=== PATIENT | female | born 1930 | race Caucasian/White ===

== ENCOUNTER 2018-04-21 19:38 | Inpatient (IN) ==
[2018-04-21] MEDS ORDERED: DILAUDID IV ONE ×2 (19:41→20:29)
[2018-04-21 20:26] LABS: BASO# 0.05 X1000 (0.0-0.2); BASO% 0.5 % (0.0-0.8); EOS# 0.21 X1000 (0.0-0.7); EOS% 2.3 % (0.0-10.0); HEMATOCRIT 29.7 % (37.0-47.0); HEMOGLOBIN 9.5 g/dL (12.0-16.0); IMM GRAN# 0.02 X1000 (0.0-0.04); IMM GRAN% 0.2 % (0.0-0.5); LYMPH# 2.37 X1000 (1.2-3.4); LYMPH% 25.8 % (20.5-51.1); MCH 30.9 PG (27-31); MCV 96.7 FL (81-99); MONO# 0.51 X1000 (0.11-0.59); MONO% 5.6 % (1.7-9.3); MPV 9.4 FL (7.4-10.4); NEUT# 6.01 X1000 (1.4-6.5); NEUT% 65.6 % (42.2-75.2); PLT 331 X1000 (130-400); RBC 3.07 XMIL (4.2-5.4); RDW 12.9 % (11.5-14.5); WBC 9.17 X1000 (4.8-10.8)
[2018-04-21 20:36] LABS: INR 0.88; PROTIME 12.7 Seconds (11.0-16.0); PTT 25.1 Seconds (22.3-41.8)
[2018-04-21 20:53] LABS: CALCIUM 9.2 mg/dL (8.8-10.2); CREATININE 1.5 mg/dL (0.5-0.9); POTASSIUM 5.1 mmol/L (3.5-5.1)
--- NOTE | 2018-04-21 21:06 | Diag Imaging Result Doc PS360 ---
KNEE 1-2 VIEWS-RIGHT - 04/21/2018 INDICATION: knee pain TECHNIQUE: Two views COMPARISON: 06/24/2017 FINDINGS: There is a complete dislocation of the prosthetic knee. The lower leg appears to be posteriorly dislocated. No obvious fractures. IMPRESSION: Prosthetic knee dislocation. Electronically signed by Leander Mcclure 04/21/2018 9:04 PM
[2018-04-21] MEDS ORDERED: KETAMINE IV ONE (21:34)
[2018-04-21] MEDS: DIPRIVAN 1% IV ONE (21:53)
[2018-04-21] MEDS ORDERED: NS 1,000 ML ONE (22:01)
[2018-04-21] MEDS ORDERED: NS 1,000 ML IV ONE (22:04)
--- NOTE | 2018-04-21 22:11 | PROVIDER DOCUMENTATION ---
This chart was entered by Sofia Joseph Scribe, acting as scribe for John Andino MD. HPI-Musculoskeletal Pain/Inj - GENERAL Stated Complaint: knee pain Time Seen by Provider: 04/21/18 19:40 Source: patient, EMS - HX OF PRESENT ILLNESS-MUSKULOSKELTAL Nature of Presenting Problem: 87 yof presents to ED by EMS c/o complete opening of right knee after falling on a hardwood floor. Pt had total right knee replacement 2 wks ago. Review of Systems - Adult - REVIEW OF SYSTEMS - ADULT Constitutional: denies: chills, fever Eyes: reports: no symptoms reported Ears, Nose, Mouth & Throat: reports: no symptoms reported Cardiovascular: reports: no symptoms reported Respiratory: reports: no symptoms reported Gastrointestinal: reports: no symptoms reported Genitourinary: reports: no symptoms reported Musculoskeletal: reports: see HPI, other (right knee) Integumentary: reports: no symptoms reported Neurological: reports: no symptoms reported Psychiatric: reports: no symptoms reported Endocrine: reports: no symptoms reported Hematologic/Lymphatic: reports: no symptoms reported Allergic/Immunologic: reports: no symptoms reported All Other Systems: Reviewed and Negative Past History - Adult - PAST MEDICAL HISTORY-ADULT Review of Records: reports: Old Records Reviewed, Nursing Assessment Review, Medications Reviewed Major Childhood Illnesses: reports: denies history Cardiovascular: reports: denies history Respiratory: reports: denies history Gastrointestinal: reports: denies history Obstetrical/Gynecological: reports: denies history Genitourinary: reports: denies history Musculoskeletal: reports: denies history Neurological: reports: denies history Endocrine/Immune: reports: denies history Other Conditions: reports: denies history - IMMUNIZATION STATUS Childhood Immunizations: See Nurse Assessment Flu Vaccine: See Nurse Assessment - FAMILY HISTORY Family History: reviewed, not pertinent Physical Exam-Injury Related - Physical Exam-Injury Related Initial Vital Signs Reviewed: Yes General Appearance: alert, no apparent distress Eyes: PERRL/EOMI Head, Ears, Nose, Mouth & Throat: normocephalic/atraumatic Neck: non-tender Respiratory: chest non-tender Cardiovascular: normal peripheral pulses Abdominal Exam: normal bowel sounds Lymphatic: no adenopathy Back Exam: normal inspection Extremity: deformity, tenderness, other (complete opening of knee replacement,6- 7 inch long, 8-10 inch medial, good pulse, moving toes, neurovascularly intact) Integumentary: tenderness, other (complete opening of knee replacement, 6-7 inch long, 8-10 inch medial) Neurologic: preparer making department II-XII nml as tested Psych/Mental Status: normal mood/affect Progress - PLAN OF CARE/RESULTS Progress/Plan/Lab Results: Vital Signs - 8 hr 04/21/18 19:38 Temperature 99.0 F Pulse Rate 93 H Respiratory Rate 22 Blood Pressure 151/96 O2 Sat by Pulse Oximetry 100 Laboratory Results - last 24 hr 04/21/18 04/21/18 04/21/18 20:08 20:08 20:08 WBC 9.17 RBC 3.07 L Hgb 9.5 L Hct 29.7 L MCV 96.7 MCH 30.9 MCHC 32.0 L RDW Std Deviation 12.9 Plt Count 331 MPV 9.4 Immature Gran % (Auto) 0.2 Neut % (Auto) 65.6 Lymph % (Auto) 25.8 [place] % (Auto) 5.6 Eos % (Auto) 2.3 Baso % (Auto) 0.5 Immature Gran # (Auto) 0.02 Neut # (Auto) 6.01 Lymph # (Auto) 2.37 [place] # (Auto) 0.51 Eos # (Auto) 0.21 Baso # (Auto) 0.05 PT 12.7 INR 0.88 PTT (Actin FS) 25.1 Sodium 143 Potassium 5.1 Chloride 109 H Carbon Dioxide 20 L Anion Gap 14 BUN 48 H Creatinine 1.5 H Estimated GFR/1.73 m2 33 BUN/Creatinine Ratio 32 Glucose 137 H Calculated Osmolality 300 Calcium 9.2 Blood Type Antibody Screen 04/21/18 20:08 WBC RBC Hgb Hct MCV MCH MCHC RDW Std Deviation Plt Count MPV Immature Gran % (Auto) Neut % (Auto) Lymph % (Auto) [place] % (Auto) Eos % (Auto) Baso % (Auto) Immature Gran # (Auto) Neut # (Auto) Lymph # (Auto) [place] # (Auto) Eos # (Auto) Baso # (Auto) PT INR PTT (Actin FS) Sodium Potassium Chloride Carbon Dioxide Anion Gap BUN Creatinine Estimated GFR/1.73 m2 BUN/Creatinine Ratio Glucose Calculated Osmolality Calcium Blood Type A POSITIVE Antibody Screen NEGATIVE Orders Category Date Time Status NPO Diet 04/21/18 19:42 Active KNEE 1-2 VIEWS-RIGHT [RAD] Stat Exams 04/21/18 19:40 Completed BMP [BASIC METABOLIC PANEL] [CHEM] Stat Lab 04/21/18 20:08 Completed CBC WITH ELECTRONIC DIFF [HEME] Stat Lab 04/21/18 20:08 Completed PROTIME WITH INR [COAG] Stat Lab 04/21/18 20:08 Completed PTT [COAG] Stat Lab 04/21/18 20:08 Completed TYPE & SCREEN [BBK] Stat Lab 04/21/18 20:08 Completed 0.9% Sodium Chloride Inj [Ns] 1,000 ml Med 04/21/18 22:01 Discontinued .ROUTE As Directed 0.9% Sodium Chloride Inj [Ns] 1,000 ml Med 04/21/18 22:04 Ordered IV 150 mls/hr Hydromorphone [Dilaudid] Med 04/21/18 19:41 Discontinued 1 mg IV NOW ONE Hydromorphone [Dilaudid] Med 04/21/18 20:29 Discontinued 1 mg IV NOW ONE Ketamine Med 04/21/18 21:34 Discontinued 100 mg IV NOW ONE Propofol [Diprivan 1%] Med 04/21/18 21:34 Discontinued 200 mg IV STAT ONE Transfer/Admit Order [TRANSFER] Routine Transfer 04/21/18 21:49 Ordered 21:50 150/92 b/p, 92% sats, 100 hr 21:51 100mg ketamine 21:53 50mg propofol 21:54 Dr. Durbin put knee in place Result Diagrams: 04/21/18 20:08 04/21/18 20:08 - EKG 2 Time of EKG reading by physician:: 19:57 EKG Read and Signed by:: John Andino EKG Interpretation (*Must complete 3 of following elements*): Abnormal Rate: 92 Rhythm: accelerated junctional [place]: left ST Wave: non-specific ST changes - XRAY 1 XRAY: Right XRAY Study: Knee Impression: Abnormal (MPRESSION: Prosthetic knee dislocation. Electronically signed by Leander Mcclure 04/21/2018 9:04 PM) Departure - Departure Date of Disposition Decision: 04/21/18 Time of Disposition Decision: 22:09 DIAGNOSIS: Wound dehiscence, surgical Knee dislocation Qualifiers: Encounter type: initial encounter Laterality: right Qualified Code(s): S83.104A - Unspecified dislocation of right knee, initial encounter Disposition: ADMITTED INPATIENT 09 Certified Medical Emergency: Emergent Condition: Stable Referrals and Follow-Ups: Jazzy Loera MD [Primary Care Provider] - - Critical Care Note This patient required my direct & personal management of CC.: Yes Attestation - Physician/ JAYLEN Attestation Patient care was provided by Advanced Practice Provider:: No The physician spent face to face time with patient:: Yes Advanced Practice Provider documentation review:: Supervising physician onsite and consulted in the evaluation and care of this patient. The physician did have a face to face encounter with the patient. This chart was documented by the indicated scribe, (Sofia Joseph Scribe) and accurately reflects the services I performed and decisions made by me, John Andino MD, as attested by the provider's signature.
[2018-04-21] MEDS ORDERED: XYLOCAINE-MPF 2% ONE (22:29)
[2018-04-21] MEDS ORDERED: ROBINUL ONE (22:29)
[2018-04-21] MEDS ORDERED: FENTANYL ONE (22:35)
[2018-04-21] MEDS ORDERED: DIPRIVAN 1% ONE (22:35)
[2018-04-21] MEDS ORDERED: KEFZOL 2 GM/D5W 2 GM/50 ML IVPB ONE (22:48)
[2018-04-21] MEDS ORDERED: KEFZOL 1 GM/D5W 2 GM/100 ML IVPB ONE (23:02)
[2018-04-21] MEDS ORDERED: QUELICIN (DOSE) ONE (23:24)
[2018-04-21] MEDS ORDERED: NEO-SYNEPHRINE ONE (23:24)
[2018-04-21] MEDS ORDERED: SODIUM CHLORIDE 0.9% 10 ML ONE (23:24)
[2018-04-21] MEDS ORDERED: ZEMURON ONE (23:24)
[2018-04-21] MEDS ORDERED: ZOFRAN ONE (23:50)
--- NOTE | 2018-04-22 00:19 | HISTORY AND PHYSICAL ---
Patient of Dr. Loera. REASON FOR ADMISSION: Right knee injury following a fall today. HISTORY OF PRESENT ILLNESS: Ms. Kayy Clinton is an 87-year-old lady with past medical history of type 2 diabetes mellitus, hypertension, and hyperlipidemia. She was just recently, about 2 weeks ago, discharged following an elective total knee replacement. She had been doing well at home with physical therapy when today she missed her footing and fell. When she fell, she was in excruciating pain emanating from the same knee where she had surgery. There was a lot of bleeding per the patient but she stated that she did not lose consciousness. She did not have any antecedent chest pain or cardiorespiratory symptoms. The patient is a resident at [facility] and the staff there were able to call EMS when she alerted them for assistance. Other than the pain emanating from her right knee, she has no other acute complaints referable to the GI, , cardiorespiratory and neurological systems. REVIEW OF SYSTEMS: A 12-system review was done. Positive findings as per HPI. ALLERGIES: None. HOME MEDICATIONS: Are yet to be reconciled. PAST SURGICAL HISTORY: She has had a cholecystectomy, right hip nailing, right total knee replacement, another prior knee surgery in the past. SOCIAL HISTORY: She lives at [facility]. She does not smoke, drink or use drugs. FAMILY HISTORY: No overt history of heart disease, diabetes in first-degree relatives. LABORATORY DATA: White count 9000, hemoglobin 9, hematocrit 29, platelets 331, normal differential. BUN 48, creatinine 1.5. The BUN level is up from 26. Glucose 137. PT and PTT are normal. Knee x-ray done in the ER shows prosthetic knee dislocation in the posterior direction. PHYSICAL EXAMINATION: GENERAL: A morbidly obese, elderly, woman who is in mild distress with pain. She is alert and oriented x 3 with normal mood and affect. VITAL SIGNS: Blood pressure 151/96, heart rate 92, respirations 22, temperature 99 degrees, oxygen saturation 100% on room air. HEENT: Head is normocephalic, atraumatic. Eyes: PERRLA. Extraocular movements intact. She is anicteric and not pale. ENT exam is grossly normal. No central cyanosis. NECK: Short and thick. No JVD, carotid bruits, or thyromegaly. CHEST: Clear when auscultated. Good air entry in both lung tavarez. CARDIOVASCULAR: First and second heart sounds heard. No gallops, murmurs or rubs. Rhythm is regular. ABDOMEN: Protuberant and soft with no focal areas of tenderness. No masses or organomegaly. Bowel sounds are hyperactive. RECTAL: Exam is deferred at this time. EXTREMITIES: No edema, clubbing or peripheral cyanosis. Pulses distally have good volume surprisingly. NEUROLOGIC: The patient is able to wiggle toes on affected right lower extremity. Otherwise she has good strength in the rest of her extremities. SKIN: Exam notable for a deep laceration extending from the mid anterior thigh all the way to the distal aspect of the right knee anteriorly. Then she has a medial laceration extending from the tip of the aforementioned laceration all the way to the mid calf area posteriorly of her right knee. There is a dressing overlying the knee and it is soaked with blood. This laceration is all the way down beyond the deep fascia showing all the muscles in the anterior compartment of her knee. MUSCULOSKELETAL: Exam is grossly normal other than the aforementioned findings above. ASSESSMENT: 1. Wound dehiscence of right knee following trauma from fall. 2. Hypertension. 3. Type 2 diabetes mellitus. 4. Hyperlipidemia. 5. Mild to moderate azotemia. PLAN: Dr. Durbin who is continuity manager for Orthopedics, came by to see the patient and decided he needs to take the patient to the OR tonight. The patient will be hydrated preoperatively. Medication reconciliation sheet is yet to be evaluated. The patient will be treated symptomatically for pain and nausea. We strongly recommend very conservative control of patient's blood pressure in light of her fluid shift from blood loss, i.e., do not give blood pressure medications if systolic blood pressure is less than 140. Sliding-scale insulin will also be instituted while patient is here to control perioperative blood sugars. cc: MD Jazzy Gray MD
[2018-04-22] MEDS ORDERED: NEO-SYNEPHRINE ONE (00:22)
[2018-04-22] MEDS ORDERED: ZOFRAN IV PRN ×2 (01:36→02:21)
[2018-04-22] MEDS: DILAUDID ONE ×3 (01:43→02:35)
[2018-04-22] MEDS ORDERED: NS 1,000 ML ONE (02:05)
[2018-04-22] MEDS ORDERED: TYLENOL PO PRN (02:21)
[2018-04-22 02:38] LABS: HEMATOCRIT 25.1 % (37.0-47.0); HEMOGLOBIN 7.8 g/dL (12.0-16.0); MCH 30.8 PG (27-31); MCHC 31.1 g/dL (33-37); MCV 99.2 FL (81-99); MPV 8.8 FL (7.4-10.4); RBC 2.53 XMIL (4.2-5.4); RDW 13.1 % (11.5-14.5); WBC 13.03 X1000 (4.8-10.8)
[2018-04-22] MEDS: MORPHINE IV PRN ×3 (03:21→09:51)
[2018-04-22 03:41] LABS: URINE SOURCE CATH
[2018-04-22 03:43] LABS: BILIRUBIN URINE NEGATIVE (NEGATIVE); BLOOD URINE NEGATIVE (NEGATIVE); COLOR YELLOW; GLUCOSE URINE NEGATIVE (NEGATIVE); KETONE URINE TRACE mg/dL (NEGATIVE); LEUKOCYTES URINE TRACE (NEGATIVE); NITRITE URINE POSITIVE (NEGATIVE); PROTEIN URINE TRACE mg/dL (NEGATIVE); SP GRAVITY URINE 1.016; TURBIDITY URINE CLEAR (CLEAR); UR EPITHELIAL CELLS <10 /HPF (<10); URINE BACTERIA 4+ /HPF; URINE RBC <10 /HPF (<10); URINE WBC <10 /HPF (<10); UROBILINOGEN URINE NORMAL (NORMAL)
--- NOTE | 2018-04-22 05:18 | CONSULTATION ---
DATE OF CONSULTATION: 04/21/2018 CHIEF COMPLAINT: Fall with right knee pain. HISTORY OF PRESENT ILLNESS: Ms Clinton, an 87-year-old female, who presented to the emergency department after a fall. She fell and landed on her right knee. She had just had a total knee arthroplasty per my partner, Dr. Louis, back on 04/09/2018 and she busted open her incision. She came to the ER where they did x-rays which showed a posterior knee dislocation. I was consulted. Most of her pain is at the right knee. She denies pain anywhere else. PAST MEDICAL HISTORY: Diabetes, hypertension, obesity. PAST SURGICAL HISTORY: She has had several hip surgeries. She has had a right knee replacement as above, cholecystectomy, hysterectomy. SOCIAL HISTORY: She lives in assisted-living facility. She denies any tobacco or alcohol use. FAMILY HISTORY: Noncontributory. MEDICATIONS: Per the medical record. ALLERGIES: No known drug allergies. REVIEW OF SYSTEMS: Positive for right knee pain. All other systems are essentially negative. PHYSICAL EXAMINATION: General: She is an obese elderly female in no acute distress. Head and Neck: Normocephalic, atraumatic. Respirations: Nonlabored. Cardiovascular: Regular pulse . Abdomen: Nondistended. Extremities: Right lower extremity exam, looking at her knee she has an extremely large laceration. She dehisced her entire surgical incision and then she has a laceration that extends down the medial aspect of the knee toward the posterior aspect of the knee. She did have Dopplerable pulses before any reduction. RADIOGRAPHS: Two-view of the right knee show a posterior knee dislocation. It looks like the patella fractured as well. ASSESSMENT: Right knee periprosthetic dislocation. PLAN: I discussed with Ms. Clinton and her family about closed reduction. I went over with them the procedure, risks, benefits, potential complications. Risks include, but are not limited to, fracture, vascular issues, unable to get it reduced and sedation-related problems. After discussing these with the patient and the family, they expressed understanding and wished to proceed. We will perform a closed reduction in the ER and then go from there. cc: Gil Durbin MD
[2018-04-22] MEDS ORDERED: LOVENOX SUBQ SCH (06:00)
[2018-04-22 06:18] LABS: BASO# 0.04 X1000 (0.0-0.2); BASO% 0.3 % (0.0-0.8); EOS# 0.11 X1000 (0.0-0.7); EOS% 0.8 % (0.0-10.0); HEMATOCRIT 23.9 % (37.0-47.0); HEMOGLOBIN 7.5 g/dL (12.0-16.0); IMM GRAN# 0.04 X1000 (0.0-0.04); IMM GRAN% 0.3 % (0.0-0.5); LYMPH# 2.28 X1000 (1.2-3.4); LYMPH% 17.5 % (20.5-51.1); MCH 31.3 PG (27-31); MCHC 31.4 g/dL (33-37); MCV 99.6 FL (81-99); MONO# 0.91 X1000 (0.11-0.59); MPV 9.8 FL (7.4-10.4); NEUT# 9.65 X1000 (1.4-6.5); NEUT% 74.1 % (42.2-75.2); PLT 321 X1000 (130-400); RDW 13.2 % (11.5-14.5); WBC 13.03 X1000 (4.8-10.8)
[2018-04-22] MEDS: HUMALOG SUBQ SCH ×4 (06:20→20:48)
[2018-04-22] MEDS: KEFZOL 1 GM/D5W 1 GM/50 ML IVPB IV SCH ×3 (06:21→23:28)
[2018-04-22 07:01] LABS: CALCIUM 7.9 mg/dL (8.8-10.2); CREATININE 1.6 mg/dL (0.5-0.9); POTASSIUM 5.9 mmol/L (3.5-5.1)
--- NOTE | 2018-04-22 08:29 | OPERATIVE NOTE ---
PROCEDURE DATE: 04/21/2018 PREOPERATIVE DIAGNOSIS: Right knee periprosthetic posterior dislocation. POSTOPERATIVE DIAGNOSIS: Right knee periprosthetic posterior dislocation. PROCEDURE: Right knee reduction. IMPLANTS: None. ESTIMATED BLOOD LOSS: Minimal. COMPLICATIONS: None. DISPOSITION: In ER bed stable. DESCRIPTION OF THE PROCEDURE: Ms. Clinton was identified in her hospital bed. Procedure time-out was done in which we identified the correct patient, correct side, and the correct procedure. After anesthesia administered for conscious sedation which was ketamine and propofol and she had adequate anesthesia, I then reduced the knee and felt audible click and then felt like it was in good position. I did lift up her flap which was a very extensive flap from her laceration. I could see all of her metal in her knee from her total knee arthroplasty. We then packed that wound with saline gauze and wrapped with Dustin wrap. Put her in a knee immobilizer. She tolerated the procedure well. No complications. PLAN: Will plan on going up to the OR tonight for irrigation and debridement of the right knee. I think she also tore her extensor mechanism. Will assess that and her patella at the same time as I think she does have a patellar fracture seen on the radiographs. I did discuss with her daughters after the procedure about having to go to the OR tonight since all the hardware was exposed. I went over with them the procedure, the procedure risks, benefits, potential complications. Risks include, but are not limited to infection, wound healing problems, damage to nerves, arteries, veins, numbness, DVT and anesthesia related risks. After discussing these with the patient's daughters, they both expressed understanding and wished to proceed so we will proceed up to the OR for irrigation and debridement of the right knee and possible repair of her extensor mechanism. cc: Gil Durbin MD
[2018-04-22] MEDS ORDERED: ALBUTEROL 0.5% INH CONC FOR HYPERKALEMIA INH ONE (08:48)
[2018-04-22] MEDS ORDERED: VELTASSA PO ONE (08:50)
[2018-04-22] MEDS: LR 1,000 ML IV SCH ×2 (09:01→23:30)
[2018-04-22] MEDS ORDERED: DECADRON ONE (09:26)
--- NOTE | 2018-04-22 09:41 | OPERATIVE NOTE ---
PROCEDURE DATE: 04/21/2018 POSTOPERATIVE DIAGNOSES: 1. Right open knee dislocation. 2. Right medical collateral ligament tear. 3. Right patellar tendon tear. POSTOPERATIVE DIAGNOSES: 1. Right open knee dislocation. 2. Right medical collateral ligament tear. 3. Right patellar tendon tear. PROCEDURE: 1. Right knee irrigation, debridement and complex closure. 2. Right medical collateral ligament repair. 3. Right patellar tendon repair. SURGEON: Dr. Gil Durbin. FUEL ASSEMBLER: None. ANESTHESIA: General with endotracheal intubation. ESTIMATED BLOOD LOSS: 300 mL. IMPLANTS: FiberWire suture. DISPOSITION: To ICU, hemodynamically stable. INDICATION FOR PROCEDURE: Ms. Clinton is an 87-year-old female who had a ground level fall this evening. She came into the ER with an open knee dislocation. I reduced her in the ER, with some conscious sedation. When I reduced her you could see that there is a huge flap of skin and under the flap you could easily see her hardware and her total knee. She had good dopplerable pulses. We ended having to Doppler the pulses because of her body habitus and it is fairly large and it is hard to feel a pulse through all her subcutaneous tissue, but she had actually good pulses before we reduced her and after we reduced her. I discussed with her and her family about going to the operating room for surgical irrigation, debridement and repair and they all expressed understanding and wished to proceed. DETAILS OF OPERATION: Ms. Clinton was identified in the preoperative holding area. The right knee was marked as correct surgical site. She was then wheeled to the operating room, placed supine on the operating table. All bony prominences were well padded. She was induced under general anesthesia. Endotracheal tube was placed. Pulses were monitored at that time and they were bounding on the Doppler. The leg was then prepped with Betadine solution, and draped in normal sterile fashion. Surgical pause was performed. We identified the correct patient, correct side, and the correct procedure. Preop antibiotics were given. We started with thorough debridement. I evacuated all the hematoma that was there, used a curette and scrape a lot of the tissue to healthy-appearing tissue. Once we were able to see everything really well, I could tell that her patellar tendon was completely avulsed off the distal pole of the patella and looked like it had also been a little bit delaminated as there was some patellar tendon still attached to the patella itself. Her medical collateral ligament had also been avulsed off, and there was a small bony fragment that was there. We irrigated everything copiously with normal saline. I did not see any pulsatile blood flow anywhere. Her lateral collateral ligament seen very solid and stable, and I could feel it down there as well. I did not see or feel any tears around her PLC or her lateral collateral ligament. So after we irrigated everything copiously with normal saline, I reattached the medical collateral ligament and sewed that into place. I decided not to use any bone anchors. Secondary to this being grossly open wound, we just used a Maxon suture, dissolvable monofilament and then I ran that medial fascia as well down to the patellar tendon. I then whip-stitched the patellar tendon with FiberWire. I drilled 3 holes in the patella above the patellar poly and passed the sutures through there and then tied them over the superior aspect of the patella to repair the patellar tendon. I then used the Maxon again to reinforce over that area of that delaminated portion and then closed her lateral side as well. That included both the medical collateral ligament and the patellar tendon repair. I then used the Maxon to approximate her soft tissues and then used kaylie on the skin. Her wound was vertical 19 cm by horizontal 15 cm. So it was a complex closure. I put two Hemovac drains in. We then used Adaptic 4x4s, ABD, soft roll, and an Dustin. After the case was done, I checked her pulses again with a Doppler and they were bounding and there has been no change in the Doppler the whole time. I ended up not doing ABIs on her secondary to her body habitus. I do not think it would have been an accurate read for her. So we will continue to check her pulses with Doppler. She was then awoken from general anesthesia, moved to her own bed and taken to the PACU in stable condition. Postop, she will be going to ICU for monitoring. We will check her in the morning. cc: Gil Durbin MD
--- NOTE | 2018-04-22 11:22 | PROGRESS NOTE ---
DATE: 04/22/2018 SUBJECTIVE: This morning Ms. Clinton is seen in the ICU. She refers to be doing a lot better. According to her the left wrist which was giving her most of her pain is now better after being immobilized. Ms. Clinton underwent reduction of the right knee in the ER, and subsequently revision in the OR last night by Dr. Durbin. OBJECTIVE: Vital signs: Blood pressure is 108/53, pulse is 99, respiration is 10, temperature is 97.6 degrees. General: Ms. Clinton is an 85-year-old female. She is morbidly obese with a BMI of 39.1. She is in bed. She is not in any cardiopulmonary distress. HEENT: Mucosa is pink and moist. Anicteric. Acyanotic. Neck: Supple. Chest: Clear to auscultation. No crepitations. No rhonchi. Cardiovascular: Regular rate and rhythm. There is no murmurs, no rubs, no gallops. Abdomen: Soft, nontender. Bowel sounds present. Extremities: She has a trace of pedal edema. The right knee is currently in an orthopedic cast and immobilized. There is [address] Neurologic: The patient is awake, alert, and oriented. LABORATORY DATA: WBC is 13.2, hemoglobin is 7.5, platelet count of 321,000. Chemistry is reviewed, potassium is 5.9, creatinine is 1.6. Operative report has been reviewed. X-rays of the knee prior to intervention has also been reviewed. CURRENT MEDICATIONS: Have been reviewed. ASSESSMENT AND PLAN: 1. Status post mechanical fall with resultant right knee periprosthetic dislocation. The patient is status post prosthetic reduction and open reduction and debridement of the right knee done last night. Currently the patient is medically stable and we are pending further recommendations from Orthopedics 2. [id number] kidney failure. We will start the patient on gentle hydration to hopefully bring the creatinine back to her baseline. 3. Mild hyperkalemia. We will nebulize the patient with albuterol and repeat the potassium level for later this afternoon. 4. Anemia likely due to blood loss. We will continue to follow the hemoglobin and hematocrit, transfuse accordingly. cc: Chester Murillo MD
--- NOTE | 2018-04-22 12:06 | PROGRESS NOTE ---
DATE: 04/22/2018 SUBJECTIVE: Ms. Clinton is lying in bed. Overall, the pain is well controlled. Not really complaining of a lot of pain. OBJECTIVE: Right lower extremity exam: Dressing is clean, dry, and intact. Hemovacs are intact. We did not have a lot of output. She has good dorsiflexion, plantar flexion of the foot and ankle. She has good eversion and inversion of the foot and ankle. She has good sensation to light touch to the toes. She has good dorsiflexion plantar flexion of the toes. She has a good dopplerable PT and DP pulse, which has been consistent ever since her reduction in the ER. ASSESSMENT: Status post right knee reduction, irrigation and debridement, MCL repair, patellar tendon repair. PLAN: Talked with Ms. Clinton about all that was wrong and this is an extremely tough problem overall to overcome. It is going to take a lot of healing. There are still a lot of problems that could arise that we will need to watch out for. Other than that, I think she is doing well. She is nonweightbearing right lower extremity. We will keep the knee immobilizer in place. We will keep her in the ICU setting today for q. 2 hour pulse checks. Then if everything is good by tomorrow morning, then she should be able to come out of the ICU to the floor bed. cc: Gil Durbin MD
[2018-04-22 12:20] LABS: HEMATOCRIT 21.3 % (37.0-47.0); HEMOGLOBIN 6.4 g/dL (12.0-16.0)
[2018-04-22 12:43] LABS: CALCIUM 7.6 mg/dL (8.8-10.2); CREATININE 1.9 mg/dL (0.5-0.9); POTASSIUM 4.8 mmol/L (3.5-5.1)
[2018-04-22] MEDS ORDERED: NS 250 ML ONE (14:16)
[2018-04-23] MEDS: OXY IR PO PRN ×3 (05:09→20:20)
[2018-04-23] MEDS: LOVENOX SUBQ SCH (05:10)
[2018-04-23] MEDS: HUMALOG SUBQ SCH ×4 (06:14→22:53)
[2018-04-23 06:49] LABS: ALBUMIN 2.4 g/dL (3.5-5.0); CALCIUM 8.6 mg/dL (8.8-10.2); CREATININE 1.3 mg/dL (0.5-0.9); PHOSPHORUS 3.8 mg/dL (2.7-4.5); POTASSIUM 5.1 mmol/L (3.5-5.1)
[2018-04-23 06:53] LABS: BASO# 0.02 X1000 (0.0-0.2); BASO% 0.2 % (0.0-0.8); EOS# 0.02 X1000 (0.0-0.7); EOS% 0.2 % (0.0-10.0); HEMATOCRIT 24.9 % (37.0-47.0); IMM GRAN# 0.03 X1000 (0.0-0.04); IMM GRAN% 0.3 % (0.0-0.5); LYMPH# 1.37 X1000 (1.2-3.4); LYMPH% 11.5 % (20.5-51.1); MCH 30.5 PG (27-31); MCHC 32.1 g/dL (33-37); MONO# 0.93 X1000 (0.11-0.59); MONO% 7.8 % (1.7-9.3); MPV 9.9 FL (7.4-10.4); PLT 184 X1000 (130-400); RBC 2.62 XMIL (4.2-5.4); RDW 14.4 % (11.5-14.5); WBC 11.87 X1000 (4.8-10.8)
[2018-04-23] MEDS: MORPHINE IV PRN ×2 (09:56→17:06)
--- NOTE | 2018-04-23 10:47 | PROGRESS NOTE ---
DATE: 04/23/2018 SUBJECTIVE: This morning, Ms. Clinton refers to be doing a lot better. Still has some pains in the right knee, but for the most part, she feels okay. OBJECTIVE: Vital signs: Blood pressure is 143/51, pulse is 99, respirations 20 , temperature is 99.8. General: Ms. Clinton is an 87-year-old, female. She is in bed. She is not in any cardiopulmonary distress. Mucosa is pink and moist. Anicteric. Acyanotic. Neck: Supple. Chest: Clear to auscultation. There are no crepitations, no rhonchi. Cardiovascular: Regular rate and rhythm. No murmurs, no rubs, no gallops. Abdomen: Soft, nontender. Bowel sounds were present. Extremities: No pedal edema. The right knee continues to be in orthopedic cast. There is drainage in place. There is adequate sensation distally. LABORATORY DATA: WBC is 11.82, hemoglobin is up to 8.0, platelet count of 184. Chemistry is also reviewed. Sodium is 139, potassium is 5.1, chloride is 111, bicarb is 19, creatinine is down to 1.3. CURRENT MEDICATIONS: Have all been reviewed. Urine culture also showing gram- negative zach. The patient is currently asymptomatic. ASSESSMENT: 1. Status post mechanical fall, resulting into right knee periprosthetic dislocation. The patient is status post prosthetic reduction and incision and debridement of the right knee done by Dr. Durbin. Today is day 1 postop. 2. Acute on chronic kidney failure. Creatinine is on downward trend. We are going to continue with the gentle IV fluids. 3. Mild hyperkalemia, improved. 4. Anemia, secondary to acute blood loss. Patient is status post 2 PRBC transfusion. Hemoglobin and hematocrit is fairly stable today. 5. Gram-negative zach bacteriuria. The patient currently denies any urinary symptoms. Late March of this year, she did grow E coli and she was treated with Bactrim per the orthopedic report. However, at this time, because she denies any symptoms, we will consider this as an asymptomatic bacteriuria that does not need to be treated. PLAN: So, in general, I think Ms. Clinton is doing fairly okay. We are going to transfer her from the ICU to the surgical floor, continue monitoring her other comorbidities and await for further recommendations from Orthopedics. I think Ms. Clinton is probably going to benefit from rehab so will go ahead and consult social worker psychiatric to start the paperwork while we follow recommendations from Orthopedics. cc: Chester Murillo MD MTDD
[2018-04-23] MEDS: BLISTEX MEDICATED BERRY LIP BALM TOP PRN (11:11)
[2018-04-23] MEDS: LR 1,000 ML IV SCH (11:11)
--- NOTE | 2018-04-23 11:59 | EKG Report ---
Test Performed on : 04/21/2018 7:57:36 PM Test Reason : ED. NO ORDER IN MT Blood Pressure : / mmHG Vent. Rate : 092 BPM Atrial Rate : 092 BPM P-R Int : 000 ms QRS Dur : 072 ms QT Int : 346 ms P-R-T Axes : 000 -40 036 degrees QTc Int : 427 ms Accelerated Junctional rhythm. Left axis deviation Low voltage QRS Abnormal ECG When compared with ECG of 04-APR-2018 08:12, Junctional rhythm. has replaced Sinus rhythm. Borderline criteria for Anterior infarct are no longer present Criteria for Inferior infarct are no longer present ST no longer depressed in Lateral leads T wave inversion no longer evident in Inferior leads Unconfirmed Result
--- NOTE | 2018-04-23 15:47 | PROGRESS NOTE ---
DATE: 04/23/2018 SUBJECTIVE: Kayy Clinton is an 87-year-old female who had a total knee arthroplasty 2 weeks ago. She fell on Monday and had a knee dislocation with dehiscence of her wound and extension of her wound as well as tearing her MCL and patellar tendons. This was repaired by Dr. Durbin in the middle of the night on Monday night or early Monday morning. I am seeing her today for follow- up. She states she is doing much better today and has no complaints. OBJECTIVE: General: She is a well-developed, well-nourished female. She is alert, oriented, and cooperative on exam. Extremities: She has Dopplerable pulses. She can flex and extend her toes. Has brisk capillary refill. Vital Signs: Stable. She is afebrile. Output: She has had minimal output from her drain. DIAGNOSTIC STUDIES: Her hematocrit is 24.9 and her hemoglobin is 8. ASSESSMENT: Stable right knee after irrigation, debridement, wound closure and patellar tendon repair and medial collateral ligament (MCL) repair. PLAN: She can go to the floor. I think that she has transfer orders already written. We will pull her drain and change her dressing tomorrow and look at her wound. Hopefully, she can continue to be mobilized in the knee immobilizer. She is likely going to require rehabilitation due to her mobility issues now that she has to keep her knee out straight. cc: Arias Louis MD
[2018-04-23] MEDS: LIPITOR PO SCH (20:20)
[2018-04-23] MEDS: LYRICA PO SCH (20:21)
[2018-04-23] MEDS: TIMOPTIC 0.5% OPH SOLUTION BOTH EYES SCH (20:21)
[2018-04-24] MEDS: OXY IR PO PRN ×6 (00:01→21:14)
[2018-04-24] MEDS: LR 1,000 ML IV SCH ×2 (06:09→21:15)
[2018-04-24] MEDS: LOVENOX SUBQ SCH (06:09)
[2018-04-24] MEDS: HUMALOG SUBQ SCH ×4 (06:42→21:15)
[2018-04-24 07:17] LABS: BASO# 0.03 X1000 (0.0-0.2); BASO% 0.3 % (0.0-0.8); EOS# 0.33 X1000 (0.0-0.7); EOS% 3.8 % (0.0-10.0); HEMATOCRIT 24.9 % (37.0-47.0); HEMOGLOBIN 7.6 g/dL (12.0-16.0); IMM GRAN# 0.02 X1000 (0.0-0.04); IMM GRAN% 0.2 % (0.0-0.5); LYMPH# 2.29 X1000 (1.2-3.4); LYMPH% 26.2 % (20.5-51.1); MCH 29.8 PG (27-31); MCHC 30.5 g/dL (33-37); MCV 97.6 FL (81-99); MONO# 0.84 X1000 (0.11-0.59); MONO% 9.6 % (1.7-9.3); MPV 9.7 FL (7.4-10.4); NEUT# 5.22 X1000 (1.4-6.5); NEUT% 59.9 % (42.2-75.2); PLT 191 X1000 (130-400); RBC 2.55 XMIL (4.2-5.4); RDW 13.8 % (11.5-14.5); WBC 8.73 X1000 (4.8-10.8)
[2018-04-24 07:41] LABS: ALBUMIN 2.6 g/dL (3.5-5.0); CALCIUM 8.2 mg/dL (8.8-10.2); CREATININE 1.1 mg/dL (0.5-0.9); PHOSPHORUS 3.2 mg/dL (2.7-4.5); POTASSIUM 4.4 mmol/L (3.5-5.1)
--- NOTE | 2018-04-24 08:05 | PROGRESS NOTE ---
DATE: 04/24/2018 SUBJECTIVE: Kayy Clinton is an 87-year-old female who had a fall with wound dehiscence and an MCL tear as well as a patella tendon tear in her total knee arthroplasty and a knee dislocation. She has no new complaints today. OBJECTIVE: Her vital signs are stable. She is afebrile. She is a well-developed, well-nourished female who is alert, oriented, and cooperative to the exam. Her hematocrit is 24.9, her hemoglobin is 7.6. Her leg has Dopplerable pulses. The dressing is clean, dry, and intact. ASSESSMENT: Status post right knee irrigation and debridement for a wound dehiscence with repair of the medial cruciate ligament and patellar tendon. PLAN: We will work on physical therapy with her today, change her dressing, and remove her drain. Hopefully, she will go to rehab later in the week. cc: Arias Louis MD
[2018-04-24] MEDS: LYRICA PO SCH ×2 (08:22→21:14)
[2018-04-24] MEDS: MORPHINE IV PRN (08:23)
--- NOTE | 2018-04-24 13:04 | PROGRESS NOTE ---
DATE: 04/24/2018 SUBJECTIVE: Ms. Clinton was admitted on 04/21/2018. She just had total arthroplasty on her right knee and she fell. An 87 year old with past medical history of diabetes mellitus type 2, hypertension, hyperlipidemia ,just 2 weeks before this admission discharged with elective total knee displacement. Doing well at home, making progress with physical therapy. She missed her footing and fell, and she hit pretty hard with excruciating pain from the same knee which had surgery, a lot of bleeding. She did not lose consciousness. She did not have any antecedent chest pain or cardiorespiratory symptoms. Patient was a resident at the [facility] and staff were able to call EMS. She was brought here to the emergency room. She had dehiscence of the right knee and trauma, and I think she had some damage to the patella. Dr. Durbin saw her. He did a right knee reduction and right knee periprosthetic posterior dislocation. They did some repair on the patella I believe by the report, and she is making pretty good progress. PHYSICAL EXAMINATION: General: On exam today, she is awake and alert, afebrile. Vital Signs: Temperature 98.6 degrees, pulse 78, respirations 14, blood pressure 136/45. Eyes: Pupils are equal and round. Lungs: Clear in all lung tavarez. Cardiovascular exam: Regular rhythm and rate without murmur or S3. Abdomen: Soft. Skin: Warm and dry. : Urine output was 5100 mL. Blood sugars appear well controlled. ASSESSMENT AND PLAN: 1. Status post mechanical fall resulting in a right knee periprosthetic dislocation. The patient is status post prosthetic reduction, incision and debridement of the right knee done by Dr. Durbin. I think this is the second day postoperative. 2. Acute on chronic kidney failure. Creatinine is on a downward trend. Continue gentle intravenous fluids. 3. Mild hyperkalemia, improved. 4. Anemia secondary to acute blood loss. She did get 2 units of packed red blood cells. 5. Gram negative zach bacteruria. Denies any urinary symptoms. Late March of this year, she did grow Escherichia coli and treat it with Bactrim. She is making progress. I guess the plan is to try and go to rehabilitation. LAB: Her lab from this morning: White count 8730, hematocrit is 24, hemoglobin 7.6, platelet count a 191,000. Chemistry: Sodium 142, potassium 4.4, chloride 110. BUN 27, creatinine 1.1. Blood sugar 105, 133, 89 and 99. Review of her orders: Atorvastatin 20 mg at bedtime oxycodone IR 5 mg q. 3 hours p.r.n., lactated Ringer set at 75 mL an hour, Lyrica 75 mg b.i.d., and Timolol 0.5% ophthalmic solution eyedrops. Continue present program. Social Service involved. cc: Pelon Lemus MD
[2018-04-24] MEDS: BLISTEX MEDICATED BERRY LIP BALM TOP PRN (13:13)
[2018-04-24] MEDS: TIMOPTIC 0.5% OPH SOLUTION BOTH EYES SCH (21:13)
[2018-04-24] MEDS: LIPITOR PO SCH (21:14)
[2018-04-25] MEDS: OXY IR PO PRN ×4 (01:16→18:37)
[2018-04-25] MEDS: LR 1,000 ML IV SCH (03:46)
[2018-04-25] MEDS: LOVENOX SUBQ SCH (06:39)
[2018-04-25] MEDS: HUMALOG SUBQ SCH ×2 (06:39→11:59)
[2018-04-25] MEDS: LYRICA PO SCH (10:14)
--- NOTE | 2018-04-25 10:27 | DISCHARGE SUMMARY ---
ADMISSION DATE: 04/21/2018 DISCHARGE DATE: 04/25/2018 Ms. Clinton was admitted on 04/21/2018. She is followed by Dr. Jazzy Loera. She had a right knee injury following a fall. Presented on 04/21/2018, an 87-year-old, past medical history of type 2 diabetes mellitus, hypertension, hyperlipidemia. About 2 weeks prior to this admission, was discharged following elective total knee replacement. Is doing well with rehab. On the day of admission, she missed her footing and fell. She fell. She had excruciating pain from that same knee, where she had surgery. A lot of bleeding the patient had dehiscence of the wound, and so was brought here. She is a resident at [facility]. At the [facility], the staff, they were able to call EMS, brought here, and Dr. Durbin went to her for repair, and did some repair work on the patella, and cleaned out the wound. She is willing to go to rehab. She is actually going to [place] today on 04/25/2018. OTHER MEDICAL PROBLEMS: 1. Hypertension. 2. Diabetes mellitus type 2. 3. Hyperlipidemia. 4. [id number] azotemia. So, we will get her over to [facility]. DISCHARGE MEDICATIONS: Take Tylenol 650 mg q.6 hours p.r.n., Lipitor 20 mg at bedtime, OxyIR 5 mg q.3 hours p.r.n., Lyrica 75 mg b.i.d., and then she has Timoptic eye drops. So will get things set up for her. cc: Pelon Lemus MD
--- NOTE | 2018-04-25 11:31 | Diag Imaging Result Doc PS360 ---
EXAM: CHEST-PORTABLE 04/25/2018 HISTORY: rehab placement TECHNIQUE: AP portable at 1116 COMMENT: There is ill-defined opacity in the left costophrenic angle which was not present on 08/14/2017. Otherwise considering differences in technique there has been no apparent change. IMPRESSION: Atelectasis versus pneumonia left lower lobe. Electronically signed by Malick Kumar 04/25/2018 11:29 AM
--- NOTE | 2018-04-25 11:43 | PROGRESS NOTE ---
DATE: 04/25/2018 SUBJECTIVE: Ms. Clinton is an 87-year-old female, who is postoperative day 3 from her irrigation, debridement, reduction and repair of her right knee total knee arthroplasty, open dislocation. She has no complaints today. She seems comfortable. OBJECTIVE: General: She is a well-developed, well-nourished female. She is alert and cooperative on exam. Wounds: Her wound is clean, dry, intact. She has no sign of infection. She has had minimal progress with physical therapy. ASSESSMENT: Right knee, open dislocation. PLAN: She is going to rehab today. Specific wound care and physical therapy orders. She will return to see me next . cc: Arias Louis MD
[2018-04-25 11:57] VITALS: BP 144/57
[2018-04-25] MEDS ORDERED: MILK OF MAGNESIA PO PRN (13:52)
== END 2018-04-25 18:56 | DRG 488 ==
LOC: SUPCPDRO → ED 19:38 → SUATTDRO 22:33 → 4N 22:33 → ICU 04-22 01:34 → 4N 04-23 17:26
PROVIDERS: ATTEND Emergency Medicine
CPT/HCPCS: 36430; 71010; 71045; 73560; 76000; 80048; 80069; 81001; 82948; 85014; 85018; 85025; 85027; 85610; 85730; 86850; 86900; 86901; 86920; 87077; 87088; 87186; 93005; 94640; 94799; 96374; 96375; 96376; 97110; 97162; 97530; 99285; A9270; J0330; J0690; J1100; J1170; J1650; J1815; J2270; J2370; J2405; J3010; J7030; J7050; J7120; P9016; XXXXX

== ENCOUNTER 2018-06-04 09:10 | Inpatient (IN) ==
[2018-06-04] MEDS ORDERED: LR 1,000 ML ONE ×2 (09:40→15:37)
[2018-06-04] MEDS ORDERED: KEFZOL 2 GM/D5W 2 GM/50 ML IVPB ONE (09:40)
[2018-06-04] MEDS ORDERED: XYLOCAINE-MPF 2% ONE ×2 (09:48→13:06)
[2018-06-04] MEDS ORDERED: DIPRIVAN 1% ONE ×2 (09:48→13:06)
[2018-06-04] MEDS ORDERED: NEOSPORIN G.U. IRRIGANT ONE (15:38)
[2018-06-04] MEDS ORDERED: OFIRMEV 1000 MG/ISOTONIC SOLN 1,000 MG/100 ML BOTTLE ONE (16:24)
[2018-06-04] MEDS ORDERED: ZOFRAN ONE (16:24)
[2018-06-04] MEDS ORDERED: TORADOL ONE (16:24)
[2018-06-04] MEDS ORDERED: DILAUDID ONE (16:49)
[2018-06-04] MEDS ORDERED: NS 1,000 ML ONE (17:41)
[2018-06-04] MEDS ORDERED: CELEBREX PO PRN (18:02)
[2018-06-04] MEDS ORDERED: OXY IR PO PRN ×2 (18:02)
[2018-06-04] MEDS ORDERED: ZOFRAN IV PRN (18:02)
[2018-06-04] MEDS ORDERED: LASIX PO PRN (18:02)
--- NOTE | 2018-06-04 18:27 | OPERATIVE NOTE ---
PROCEDURE DATE: 06/04/2018 PREOPERATIVE DIAGNOSIS: Right knee wound nonhealing and right calf pressure sore wound. PROCEDURE: Debridement of right knee nonhealing wound and right calf wound and irrigation and wet- to-dry dressing. ANESTHESIA: General. SURGEON: Arias Louis MD. LEATHER ROLLER: Krishna. COMPLICATIONS: None. BLOOD LOSS: Minimal. TOURNIQUET TIME: Approximately 30 minutes. DESCRIPTION OF PROCEDURE: The patient was brought to the operative suite and placed in supine position. After successful administration of general anesthesia, a well-padded tourniquet was placed on the right proximal thigh, and right lower extremity was prepped and draped in usual sterile fashion. The wounds were debrided and cultures were obtained, debrided back to healthy tissue. There were some Maxon sutures that were removed from her previous surgery as well as some nonviable patellar tendon that was removed. The calf wound was also debrided back to healthy tissue. The wounds were copiously irrigated with normal saline containing irrigant and Vashe irrigation and Vashe wet-to-dry dressings were placed, and a sterile dressing applied. The patient tolerated the procedure without complications. At the end of the procedure, all counts were correct. The patient was taken to the recovery room in stable condition. cc: Arias Louis MD
[2018-06-04] MEDS: LIPITOR PO SCH (22:15)
[2018-06-04] MEDS: TIMOPTIC 0.5% OPH SOLUTION BOTH EYES SCH (22:15)
[2018-06-04] MEDS: COLACE PO SCH (22:15)
[2018-06-04] MEDS: NS 1,000 ML IV SCH (22:16)
[2018-06-04] MEDS: PERIDEX MT SCH (22:16)
[2018-06-05] MEDS: KEFZOL 2 GM/D5W 2 GM/50 ML IVPB IV SCH ×2 (00:25→07:52)
[2018-06-05 04:28] LABS: URINE SOURCE CATH
[2018-06-05 04:30] LABS: BILIRUBIN URINE NEGATIVE (NEGATIVE); BLOOD URINE NEGATIVE (NEGATIVE); COLOR YELLOW; GLUCOSE URINE NEGATIVE (NEGATIVE); KETONE URINE TRACE mg/dL (NEGATIVE); LEUKOCYTES URINE SMALL (NEGATIVE); NITRITE URINE NEGATIVE (NEGATIVE); PH URINE 5.5; PROTEIN URINE TRACE mg/dL (NEGATIVE); SP GRAVITY URINE 1.021; TURBIDITY URINE HAZY (CLEAR); UROBILINOGEN URINE NORMAL (NORMAL)
[2018-06-05 04:32] LABS: UR EPITHELIAL CELLS <10 /HPF (<10); URINE BACTERIA 4+ /HPF; URINE RBC <10 /HPF (<10)
[2018-06-05] MEDS: ULTRAM PO PRN ×2 (05:51→20:18)
[2018-06-05 06:04] LABS: HEMATOCRIT 27.5 % (37.0-47.0); HEMOGLOBIN 8.4 g/dL (12.0-16.0)
[2018-06-05 06:25] LABS: CALCIUM 8.5 mg/dL (8.8-10.2); CREATININE 1.3 mg/dL (0.5-0.9); POTASSIUM 4.6 mmol/L (3.5-5.1)
--- NOTE | 2018-06-05 07:41 | PROGRESS NOTE ---
DATE: 06/05/2018 SUBJECTIVE: Kayy Clinton is an 87-year-old female with a severe injury to her right total knee arthroplasty that she suffered several weeks ago. She has had a wound that would not completely heal since then. She has no new complaints today. OBJECTIVE: She is a well-developed, well-nourished female who is alert, oriented, and cooperative with exam. She is postoperative day 1 from an I and D of her right knee and calf. Her vital signs are stable. She is afebrile. Her hematocrit is 27.5. Her hemoglobin is 8.4. She does have UTI; we are going to treat that. ASSESSMENT: Knee wound with urinary tract infection. PLAN: We will place her on antibiotics for her UTI. She can begin physical therapy today in her brace locked in extension. The wound VAC nurse will see her later today and likely place a wound VAC on her knee. cc: Arias Louis MD
[2018-06-05] MEDS: NS 1,000 ML IV SCH ×2 (07:48→20:19)
[2018-06-05] MEDS: HYZAAR 50/12.5 MG PO SCH (09:17)
[2018-06-05] MEDS: VICON-C PO SCH (09:17)
[2018-06-05] MEDS: CENTRUM SILVER PO SCH (09:17)
[2018-06-05] MEDS: BIOTIN PO SCH (09:18)
[2018-06-05] MEDS: ASPIRIN PO SCH (09:18)
[2018-06-05] MEDS: PERIDEX MT SCH ×2 (09:18→20:18)
[2018-06-05] MEDS ORDERED: CALMOSEPTINE OINTMENT TOP PRN (11:28)
[2018-06-05] MEDS: COLACE PO SCH ×2 (13:07→20:21)
[2018-06-05] MEDS ORDERED: IMODIUM PO PRN (13:11)
[2018-06-05] MEDS: SEPTRA DS PO SCH ×2 (13:32→20:18)
[2018-06-05] MEDS: PATIENT'S OWN MED PO SCH (13:33)
[2018-06-05] MEDS: MORPHINE IV PRN (16:31)
[2018-06-05] MEDS: TIMOPTIC 0.5% OPH SOLUTION BOTH EYES SCH (20:18)
[2018-06-05] MEDS: LIPITOR PO SCH (20:18)
[2018-06-06] MEDS: ULTRAM PO PRN ×2 (03:50→22:18)
[2018-06-06 05:30] LABS: HEMOGLOBIN 8.3 g/dL (12.0-16.0)
[2018-06-06] MEDS: VICON-C PO SCH (09:50)
[2018-06-06] MEDS: ASPIRIN PO SCH (09:50)
[2018-06-06] MEDS: CENTRUM SILVER PO SCH (09:50)
[2018-06-06] MEDS: BIOTIN PO SCH (09:50)
[2018-06-06] MEDS: SEPTRA DS PO SCH (09:50)
[2018-06-06] MEDS: HYZAAR 50/12.5 MG PO SCH (09:50)
[2018-06-06] MEDS: PERIDEX MT SCH ×2 (09:51→22:18)
--- NOTE | 2018-06-06 10:51 | PROGRESS NOTE ---
DATE: 06/06/2018 SUBJECTIVE: Ms. Clinton is an 87-year-old female, who is postoperative day 2 from a right knee irrigation and debridement and she had wound VAC placement yesterday. She has no new complaints. OBJECTIVE: General: She is a well-developed, well-nourished female. She is alert, oriented, and cooperative with examination. She is in no acute distress. Vital Signs: Stable. She is afebrile. Extremities: Her right knee wound VAC is clean, dry and intact. Her right leg is neurovascularly intact. LABORATORY DATA: Her cultures came back with no growth. ASSESSMENT: Stable postoperative day 2 from a right knee irrigation and debridement with wound VAC placement yesterday. PLAN: We will continue her current management. We will plan to change the wound VAC either tomorrow or Monday, depending on what day she is discharged to rehab. Hopefully she can be discharged to a rehab facility tomorrow or Monday. Dictated by REA Echevarria for Arias Louis MD cc: REA Echevarria MD
--- NOTE | 2018-06-06 15:40 | INFECTIOUS DISEASE CONSULT REP ---
DATE: 06/06/2018 CONCLUSION: The patient has a right knee wound that continually drains. On 3 separate occasions culture of the drainage grew diphtheroids. I agree with Dr. Louis that most likely the draining wound on the right knee communicates with the patient's total knee arthroplasty and thus, there appears to be infection on the total knee arthroplasty itself. The patient has a gram-negative zach, asymptomatic urinary tract infection. RECOMMENDATIONS: I plan to treat the patient with high-dose IV penicillin for 6 weeks and then put her on a low dose of penicillin such as 500 mg p.o. every 12 hours on a chronic basis hopefully to keep any remaining infection under control. Because the patient's urinary tract infection is asymptomatic, it does not require antibiotic therapy and I plan not to treat with antibiotics for the asymptomatic urinary tract infection. DISCUSSION: The patient underwent a right total knee arthroplasty. Dr. Louis has noted that there was drainage coming from the knee and on 3 separate occasions culture grew diphtheroids, as mentioned above. The patient this time fell and injured her right knee and Dr. Louis took her to surgery. His diagnosis was right knee wound nonhealing and right calf pressure sore wound and the procedure was a debridement of the right knee nonhealing wound and right calf wound and irrigation and wet-to-dry dressing. The patient's hemoglobin and hematocrit were 8.3 and 27 respectively. Creatinine is 1.3. GFR is 39. Urine grew a gram-negative zach, as mentioned above. The right knee on 3 separate occasions including the present time now has grown diphtheroids. PAST MEDICAL HISTORY/REVIEW OF SYSTEMS: Eyes and ears: The patient hears and sees well. Neck: No stiffness. Respiratory: No cough or shortness of breath. Cardiac: No chest pain or palpitations. GI: No nausea, vomiting, or diarrhea. : No dysuria or flank pain. Bones, joints, muscles: See present illness. Neurologic: The patient does not have seizures. She has not lost any motor or sensory function recently. WATER TAXI CAPTAIN HISTORY: The patient is a 4, para 4, AB 0. She has had tubal ligation. PREVIOUS HOSPITALIZATIONS AND OPERATIONS: She has had labor and deliveries, tubal ligation, both left and right total knee arthroplasties, right hip nail, cholecystectomy, surgery for renal calculi, and also an admission for what was thought to be sepsis, although no definite infection was found. MEDICAL DISEASES: Positive for melanoma, osteoarthritis, and also positive for an episode of sepsis, as mentioned above, and hyperlipidemia INFECTIOUS DISEASE HISTORY: Positive for pneumonia and UTI. FAMILY HISTORY: Positive for diabetes mellitus, stroke, and cancer. SOCIAL HISTORY: The patient lives in [place]. She is a . She does not smoke cigarettes, drink alcoholic beverages, or abuse drugs. She does not have any pets. DRUG ALLERGIES: She does not have any drug allergies. HOME MEDICATIONS: Aspirin, Lipitor, biotin, celecoxib, Colace, Lasix, Hyzaar, minerals and vitamins, Lyrica, and tramadol. PHYSICAL EXAMINATION: Vital Signs: Temperature is 97.6 degrees, pulse 76, respirations 18, blood pressure 128/56. General: This is an obese, elderly female. She is in no acute distress. Head, eyes, ears, nose, throat: She can hear my spoken words and see near objects. She does not have any white patches on her tongue. Neck: No pain with movement. Lungs: Clear to auscultation. Cardiovascular: Heart rate is regular. Abdomen: Soft and nontender. Extremities: The patient's right leg has a large dressing around the knee and calf. The VAC is in place on the knee. Neurologic: Patient is alert. She can move her extremities. There is no tremor. Her sensation is intact. Her memory as regarding her medical history is intact. Integument: No rash noted. Thank you for the consult. cc: MD Arias Jay MD
[2018-06-06] MEDS: PENICILLIN SODIUM IV SCH ×2 (16:45→22:18)
[2018-06-06] MEDS: D5W IV SCH ×2 (16:45→22:18)
[2018-06-06] MEDS: COLACE PO SCH ×2 (16:46→22:19)
[2018-06-06] MEDS: TIMOPTIC 0.5% OPH SOLUTION BOTH EYES SCH (22:15)
[2018-06-06] MEDS: LIPITOR PO SCH (22:19)
[2018-06-07] MEDS: D5W IV SCH ×2 (04:12→08:59)
[2018-06-07] MEDS: PENICILLIN SODIUM IV SCH ×2 (04:12→08:59)
[2018-06-07 06:30] LABS: INR 0.97; PROTIME 13.7 Seconds (11.0-16.0)
[2018-06-07 06:33] LABS: BASO# 0.04 X1000 (0.0-0.2); BASO% 0.5 % (0.0-0.8); EOS# 0.41 X1000 (0.0-0.7); EOS% 4.9 % (0.0-10.0); HEMATOCRIT 27.1 % (37.0-47.0); HEMOGLOBIN 8.3 g/dL (12.0-16.0); LYMPH# 2.23 X1000 (1.2-3.4); LYMPH% 26.7 % (20.5-51.1); MCH 28.1 PG (27-31); MCHC 30.6 g/dL (33-37); MCV 91.9 FL (81-99); MONO# 0.64 X1000 (0.11-0.59); MONO% 7.7 % (1.7-9.3); MPV 9.5 FL (7.4-10.4); NEUT# 5.03 X1000 (1.4-6.5); NEUT% 60.2 % (42.2-75.2); PLT 274 X1000 (130-400); RBC 2.95 XMIL (4.2-5.4); RDW 13.1 % (11.5-14.5); WBC 8.35 X1000 (4.8-10.8)
[2018-06-07] MEDS: HYZAAR 50/12.5 MG PO SCH (08:57)
[2018-06-07] MEDS: ASPIRIN PO SCH (08:57)
[2018-06-07] MEDS: BIOTIN PO SCH (08:57)
[2018-06-07] MEDS: COLACE PO SCH (08:58)
[2018-06-07] MEDS: VICON-C PO SCH (08:58)
[2018-06-07] MEDS: CENTRUM SILVER PO SCH (08:58)
[2018-06-07] MEDS: PERIDEX MT SCH (08:58)
[2018-06-07] MEDS: PATIENT'S OWN MED PO SCH (09:01)
[2018-06-07] MEDS ORDERED: NS 250 ML ONE (10:51)
[2018-06-07 10:59] VITALS: BP 146/55
[2018-06-07] MEDS: ULTRAM PO PRN (11:04)
[2018-06-07] MEDS: MORPHINE IV PRN (11:59)
--- NOTE | 2018-06-07 13:02 | DISCHARGE SUMMARY ---
ADMISSION DATE: 06/04/2018 DISCHARGE DATE: 06/07/2018 DISCHARGE DIAGNOSES: 1. Right knee wound dehiscence, status post right knee irrigation and debridement. 2. Presence of right total knee arthroplasty with patellar tendon repair and MCL tear. DISPOSITION: The patient is discharged to [facility]. DISCHARGE INSTRUCTIONS: Instructions for wound care per the wound care nurse. She is instructed to keep her knee extended at all times. She is to be weightbearing as tolerated on the right lower extremity while wearing her brace. She is instructed to follow up with Dr. Louis in 2 weeks, and she is instructed to follow up with Dr. Ponce in 3 weeks. DISCHARGE MEDICATIONS: See discharge medication list. HOSPITAL COURSE: On the day of admission, patient underwent a right knee irrigation and debridement. Her postoperative course was unremarkable. On postoperative day 1, she had wound VAC placement. Wound VAC was changed today, and there is some granulation tissue present. There is no sign of infection. She is discharged to rehab in stable condition with instructions to follow up as described above. Dictated by REA Echevarria for Arias Louis MD cc: REA Echevarria MD MTDD
--- NOTE | 2018-06-07 13:51 | INFECTIOUS DISEASE PROGRESS NO ---
DATE: 06/07/2018 The patient had the VAC removed from her right knee today. There are 2 separate wounds. Both have beefy red tissue. The prosthesis and bone were not visually seen. The plan is to treat with aqueous penicillin intravenously for 6 weeks and then put the patient on a low dose of penicillin such as 500 mg every 12 hours on an indefinite basis. The patient is going to a rehab facility. I think it is going to be [facility]. Then, after that, [facility] will supply the patient's home IV antibiotic consisting of penicillin. I have put in a request to have the patient come to my office in 3 weeks and then after that, another 3 weeks, which would be 6 weeks from today, at which time we will stop the IV penicillin and put the patient on p.o. penicillin, and also remove the patient's PICC. cc: MD Arias Jay MD MTDD
== END 2018-06-07 15:08 | DRG 901 ==
LOC: 4N 09:10 → OR 09:10
PROVIDERS: ADMIT Orthopaedic Surgery; ATTEND Orthopaedic Surgery
CPT/HCPCS: 36569; 80048; 81001; 82565; 85014; 85018; 85025; 85610; 87070; 87075; 87077; 87088; 87186; 87205; 94760; 97110; 97162; 97530; A9270; J0131; J0690; J1170; J1885; J2270; J2405; J7030; J7050; J7060; J7120